=== PATIENT | female | born 1970 | race American Indian/Alaskan Native ===

== ENCOUNTER 2018-05-06 07:48 | Emergency (ER) | payer BC ==
[~2018-05-06] VITALS: Ht 157.5 cm; Wt 71.8 kg
[~2018-05-06 07:48] MED LIST: CLEOCIN HC150 MG/CAP PO; NO HOME MEDICATIONS; NORCO 325 MG-51 TAB PO
[2018-05-06 07:49] VITALS: TEMP 98.2
[2018-05-06] MEDS ORDERED: FLEXERIL 1010 MG/TAB PO (08:41)
[2018-05-06] MEDS ORDERED: NORCO 325 MG-51 TAB PO (08:41)
[2018-05-06 09:13] VITALS: BP 152/86; PULSE 76
== END 2018-05-06 09:14 | disposition home or self-care (01) ==
LOC: COL.ER 07:48
DX: M25.511 Pain in right shoulder (principal); M25.611 Stiffness of right shoulder, not elsewhere classified
CPT/HCPCS: J1885